=== PATIENT | male | born 1965 | race Caucasian/White ===

== ENCOUNTER 2020-09-21 08:23 | Emergency (ER) | payer OTHER, SELFPAY ==
[2020-09-21] VITALS (9 sets, daily range): BP systolic 147–184; BP diastolic 93–115; PULSE 63–81; RESP 10–24; TEMP 37.1; O2SAT 97–98
--- NOTE | ~2020-09-21 | XR_ITS ---
EXAMINATION: XR lumbar spine 2-3V DATE: 09/21/2020 09:13 INDICATION: Low back pain. Fall. TECHNIQUE: 2 views of lumbar spine were obtained. COMPARISON: CT abdomen and pelvis 06/07/2018 FINDINGS: The spine alignment is normal. There is mild chronic anterior wedging of T12 and L1 vertebr al bodies. There is severely decreased disc height at L5-S1. There are endplate osteophytes at all le vels. There is multilevel mild facet joint osteoarthritis. There are fractures of the right L1-L4 tra nsverse processes. There is a fracture of right 11th rib. IMPRESSION: 1. Fractures of the right L1-L4 transverse processes and right 11th rib. 2. Severe lower lumbar spondylosis. Reviewed, dictated and finalized at location B. INE DESIGN ENGINEER
--- NOTE | ~2020-09-21 | XR_ITS ---
[id number] DATE: 09/21/2020 10:21 INDICATION: Anterior chest pain following injury from fall TECHNIQUE: PA chest. 3 views of the right ribs. COMPARISON: 06/07/2018 and 06/04/2017 PA and lateral chest examinations FINDINGS: There is evidence of old healed posterolateral right fourth through seventh rib fractures. Recent nondisplaced proximal right 11th rib fracture is suggested but not definitively confirmed on 2 of [address] thorax would be helpful if clinically appropriate. However, further evaluation is not necessarily indicated considering no apparent displaced rib fracture. No evidence of rib fracture is noted otherwise. No pulmonary infiltrate or consolidation, pleural effusion or pulmonary vascular congestion or pneumo thorax is detected. IMPRESSION: No apparent recent displaced rib fracture. Cannot exclude a nondisplaced proximal right 1 1th rib fracture. Multiple old right rib fractures Reviewed, dictated and finalized at Location [facility]. Reviewed, dictated and finalized at location A. ONICS ENGINEER IMPRESSION: No apparent recent displaced rib fracture. Cannot exclude a nondisp laced proximal right 11th rib fracture. Multiple old right rib fractures
--- NOTE | ~2020-09-21 | CT_ITS ---
EXAMINATION: CT brain wo con DATE: 09/21/2020 08:59 INDICATION: Patient fell and struck back of head. TECHNIQUE: Computed tomography (CT) of the head was performed without intravenous contrast. The mA wa s adjusted according to patient size. Iterative reconstruction technique was employed. Exam dose: 68 1.00 mGy-cm total exam DLP. COMPARISON: None FINDINGS: No intracranial mass lesion or hemorrhage or cerebrovascular accident is evident. No midlin e shift or mass effect. Normal ventricular size. No subdural or epidural hematoma. No skull fracture. Mild posterior right parietal occipital cephalhematoma. No coup or contrecoup intr acranial injury is identified. The orbital contents are unremarkable. Mild nodular soft tissue thickening of the inferolateral right maxillary sinus. Approximately 7 x 9 mm mucous retention cyst or polyp at the floor of the left maxillary sinus. The m astoid air cells and paranasal sinuses are otherwise unremarkable. IMPRESSION: Mild right posterior parietal occipital cephalohematoma; no skull fracture or acute intr acranial finding Reviewed, dictated and finalized at [facility]. Reviewed, dictated and finalized at location A. R UPHOLSTERER IMPRESSION: Mild right posterior parietal occipital cephalohematoma; no skull fracture or acute intracranial finding
--- NOTE | ~2020-09-21 | CT_ITS ---
EXAMINATION: CT cervical spine wo con DATE: 09/21/2020 08:59 INDICATION: Fall with head injury TECHNIQUE: Computed tomography (CT) of the cervical spine was performed without intravenous contrast. Automated exposure control and iterative reconstruction technique were employed. The dose-length pro duct was 493.48 mGy-cm. COMPARISON: Cervical spine radiographs dated 07/07/2008 and thoracic spine MR dated 07/19/2008 FINDINGS: Alignment is normal. Vertebral body heights are normal. No acute fracture. 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 Moderate disc height loss with mild right and severe left uncovertebral osteoarthritis at C5-C6 . Mild disc height loss with mild bilateral uncovertebral osteoarthritis at C6-C7 with mild right-shahbaz ed uncovertebral osteoarthritis at C7-T1. There are posterior disc osteophyte complexes at each of th la levels as well as a disc bulge at C4-C5, each resulting in mild central canal stenosis. Moderate bilateral facet osteoarthritis at C7-T1. Mild osteoarthritis at multiple more cephalad bilateral cerv ical facet joints. Moderate neural foraminal stenosis on the left at C5-C6 and C6-C7. Mild stenosis a t multiple additional bilateral neural foramina. Visualized cervical soft tissues, airway and apices of the lungs are unremarkable. IMPRESSION: 1. Mild to moderate cervical spondylosis. No acute osseous abnormality. Reviewed, dictated and finalized at location A. PROCESS HEAD MILLER
--- NOTE | ~2020-09-21 | XR_ITS ---
EXAMINATION: XR hip RT min 3V w AP pelvis DATE: 09/21/2020 09:13 INDICATION: Right hip pain. Low back pain. TECHNIQUE: An anteroposterior view of the pelvis on 2 radiographs and 3 views of right hip were obtai damaris. COMPARISON: Right hip radiographs 05/14/2011 FINDINGS: Bone alignment is normal. No fracture. There is moderate osteoarthritis of the hips. There is moderate lumbar spondylosis. IMPRESSION: 1. Moderate osteoarthritis of the hips. Reviewed, dictated and finalized at location B. NESS PERFORMANCE SPECIALIST
--- NOTE | 2020-09-21 09:14 | ED.FALL ---
HPI - Fall General Chief Complaint: Fall Stated Complaint: FALL Time Seen by Provider: 09/21/20 08:32 Source: patient and EMS Mode of arrival: EMS Limitations: no limitations History of Present Illness HPI Narrative: 55 years old white male, sleep on a with ground and fell backward, complaining of right hip pain, occipital pain. Patient denies loss of consciousness or other injuries. Patient came, c-collar on, patient laying flat in bed, at the bedside Related Data Home Medications Medication Instructions Recorded Confirmed amlodipine 10 mg tablet 10 mg PO DAILY 08/25/19 famotidine 20 mg tablet 20 mg PO BID tablet 08/25/19 olmesartan 40 1 tablet PO DAILY 08/25/19 mg-hydrochlorothiazide 12.5 mg tablet Allergies Allergy/AdvReac Type Severity Reaction Status Date / Time hydrochlorothiazide Allergy Mild irregular Verified 09/21/20 09:26 heartbeat valsartan Allergy Mild irregular Verified 09/21/20 09:26 heartbeat morphine AdvReac Nausea and Verified 09/21/20 09:26 Vomiting Review of Systems Review of Systems: Narrative: CONSTITUTIONAL: Denies fever, chills, or sweats. EYES: Denies visual changes, redness, or discharge. ENT: Denies rhinorrhea, congestion, sore throat, or otalgia. CARDIOVASCULAR: Denies chest pain, palpitations, or edema. RESPIRATORY: Denies cough or dyspnea. GASTROINTESTINAL: Denies abdominal pain, nausea, vomiting, or diarrhea. GENITOURINARY: Denies dysuria or hematuria. SKIN: Denies rash or itching. MUSCULOSKELETAL: Right hip pain NEUROLOGIC: Denies headache, numbness, or weakness. PSYCHIATRIC: Denies anxiety or depression. PMFSH Family History Family History Father Family history of lung cancer, Onset Age: 55 Patient's father is Mother Patient's mother is Social History Social History Smoking status: Former smoker Second hand tobacco smoke exposure: No Smoking end date: 10/14/90 Alcohol intake: current Substance use: never Exam Narrative: Exam Narrative: General appearance: Well-developed, well-nourished Skin: Normal color Head: Normocephalic, occipital tenderness, no laceration Eyes: Clear conjunctiva ENT: Oropharynx normal, ears normal, nose normal Neck: Supple, nontender Chest and respiratory: Airway patent, no respiratory distress, no accessory muscle use Heart: Regular rate/rhythm Abdomen: Soft, nontender, no organomegaly, quiet bowel sounds Vascular: Normal peripheral pulses, normal capillary refill. 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, no gross motor deficit Course Course Emergency Course: Stable Vital Signs Vital signs: Vital Signs Temperature 37.1 C 09/21/20 08:22 Pulse Rate 70 09/21/20 08:22 Respiratory Rate 15 09/21/20 08:22 Blood Pressure 176/100 H 09/21/20 08:22 Pulse Oximetry 98 09/21/20 08:22 Temperature 37.1 C 09/21/20 08:22 Pulse Rate 70 09/21/20 08:22 Respiratory Rate 15 09/21/20 08:22 Blood Pressure 176/100 H 09/21/20 08:22 Pulse Oximetry 98 09/21/20 08:22 MDM - Fall MDM Narrative Medical decision making narrative: Patient had a fall, CT head, CT cervical spine, x-ray lumbar spine and right hip with pelvis Differential Diagnosis Differential diagnosis: Likely concussion without loss of consciousness and other (Pelvic fracture, lumbar fracture, intracranial hemorrhage) Critical Care Time Critical Care Time Critical Care Time: Yes Total Critical Care Time: 2
--- NOTE | 2020-09-21 11:52 | PC.NURSE ---
While helping patient sit on side of bed to dress, patient became diaphoretic, c/o right calf muscle cramping. BP 101/72. Helped patient lay down. Cool wash cloth given to patient.
== END 2020-09-21 12:31 | disposition home or self-care (01) ==
PROVIDERS: Emergency Provider Emergency Medicine; PCP Internal Medicine
DX: S22.31XA Fracture of one rib, right side, initial encounter for closed fracture (principal); S32.008A Other fracture of unspecified lumbar vertebra, initial encounter for closed fracture; S09.90XA Unspecified injury of head, initial encounter; W01.0XXA Fall on same level from slipping, tripping and stumbling without subsequent striking against object, initial encounter
CPT/HCPCS: 70450; 71101; 72100; 72125; 73502; 99284